=== PATIENT | male | born 1960 | race Caucasian/White ===

== ENCOUNTER → 2023-02-03 10:01 | Outpatient (BNVA) | payer MEDICAID, SELFPAY | PROVIDERS: PCP Internal Medicine; Referring Provider Family Medicine; Visit Provider Psychiatry & Neurology Neurology | DX: R29.90 Unspecified symptoms and signs involving the nervous system (principal) | CPT/HCPCS: 36415; 80061; 81241; 82607; 82746; 83090; 83735; 83921; 84155; 84165; 84439; 84443; 84481; 85210; 85300; 85303; 85306; 86146; 86147; 86334; 86617; 86780 ==

== ENCOUNTER → 2023-02-03 10:01 | Outpatient (BNVA) | payer MEDICAID, SELFPAY | PROVIDERS: PCP Internal Medicine; Referring Provider Family Medicine; Visit Provider Psychiatry & Neurology Neurology | DX: G62.9 Polyneuropathy, unspecified (principal); R00.1 Bradycardia, unspecified; Z86.73 Personal history of transient ischemic attack (TIA), and cerebral infarction without residual deficits; R68.89 Other general symptoms and signs; F17.200 Nicotine dependence, unspecified, uncomplicated; Z96.29 Presence of other otological and audiological implants; G25.0 Essential tremor; E78.5 Hyperlipidemia, unspecified | CPT/HCPCS: 99203 ==

== ENCOUNTER 2023-02-12 13:18 | Outpatient (CLI) | payer MEDICAID, SELFPAY ==
--- NOTE | 2023-02-12 13:15 | USCV_ITS ---
Yuval Hyde Age: 62 Gender: M : 1960 Exam Date: 02/12/2023 13:35 Ordering Phys: Pillo Hood MD Technologist: Jose Juarez [place]am Location: [facility] [place] Indication: neurological complaint Risk Factors: Previous Vascular Surgery: Right Brachial BP: / Left Brachial BP: / Right Left Velocity (cm/s) Spectral Plaque Velocity (cm/s) Spectral Plaque Syst/Diast Broadening Syst/Diast Broadening 109.20/24.30 Prox CCA 139.00/ 30.20 108.10/29.80 Mid CCA 100.30/ 30.90 91.70/ 23.30 Distal CCA 102.50/ 26.50 119.60/30.20 Prox ICA 144.50/ 28.00 77.70/ 29.50 Mid ICA 82.00 / 26.50 82.30/ 32.60 Distal ICA 87.30 / 34.80 144.40 ECA 96.30 0.72 ICA/CCA 0.82 Antegrade Vertebral Antegrade 51.70/ 16.70 cm/s 55.80/ 16.50 cm/s Tri Subclavian Tri 107.2 92.40 0 FINDINGS Comparison: none available. No significant elevation of systolic or diastolic velocities. Waveforms are normal. Mild plaque in the bifurcations. Antegrade vertebral arteries. CONCLUSIONS Bilateral ICA stenosis less than 50%. Mild carotid atherosclerosis. Dr. Denise Vo DO (Electronically Signed) Final Date: 12 February 2023 14:11 S
== END 2023-02-12 13:19 | disposition home or self-care (01) ==
LOC: RAD 13:21
PROVIDERS: PCP Internal Medicine; Visit Provider Psychiatry & Neurology Neurology
DX: R29.90 Unspecified symptoms and signs involving the nervous system (principal); I65.23 Occlusion and stenosis of bilateral carotid arteries
CPT/HCPCS: 36415; 80061; 81241; 82607; 82746; 83090; 83735; 83921; 84155; 84165; 84439; 84443; 84481; 85210; 85300; 85303; 85306; 86146; 86147; 86334; 86617; 86780; 93880

== ENCOUNTER 2023-03-05 10:44 | Oncology outpatient (recurring) (ONCR) | payer MEDICAID, SELFPAY | END 2023-03-13 23:59 | disposition home or self-care (01) | LOC: ONCMED 10:45 | PROVIDERS: PCP Internal Medicine; Visit Provider Internal Medicine Medical Oncology | DX: D68.51 Activated protein C resistance (principal); G62.9 Polyneuropathy, unspecified; D51.9 Vitamin B12 deficiency anemia, unspecified; Z79.899 Other long term (current) drug therapy | CPT/HCPCS: 99205 ==

== ENCOUNTER 2023-04-21 15:07 | Outpatient (CLI) | payer MEDICAID, SELFPAY ==
--- NOTE | 2023-04-21 15:15 | USCV_ITS ---
mILD Icenogle, Yuval Age: 62 Gender: M : 1960 Exam Date: 04/21/2023 15:25 Ordering Phys: Pillo Hood MD Technologist: CT Exam Location: [facility] – [place]_ Indication: bradycardia BP: 130 / 80 HR: 56 Rhythm: Sinus Technical Quality: Adequate MEASUREMENTS (Male / Female) Normal Values 2D ECHO LV Chamber Size 4.3 cm RV Chamber Size 2.9 cm LV Ejection Fraction MOD 2C 67.9 % LV Ejection Fraction 2C AL 67.4 % LA Diameter 3.5 cm LA Width 3.4 cm LA Height 3.7 cm RA Width 3.6 cm RA Height 4.7 cm Aorta at Sinotubular Diameter 2.3 cm IVC Diameter 1.5 cm M-MODE Aortic Annulus Diameter 3.0 cm LA Ao Ratio MM 1.4 MV E Point Septal Separation 0.7 cm DOPPLER AV Peak Velocity 160.0 cm/s LVOT Peak Velocity 118.0 cm/s MV Area PHT 2.5 cm squared Mitral E to A Ratio 1.3 MV E' Velocity 43.5 cm/s Mitral E to MV E' Ratio 6.2 Mitral E to LV E' Lateral Ratio 5.3 Mitral E to LV E' Septal Ratio 7.4 TR Peak Velocity 105.0 cm/s TR Peak Gradient 4.4 mmHg TV Peak E Velocity 77.0 cm/s Right Atrial Pressure 3.0 mmHg Pulmonary Artery Systolic Pressu 7.4 mmHg PV Peak Velocity 104.0 cm/s FINDINGS Left Ventricle Lefft ventricle is normal in size. LV systolic function is normal with EF 55 to 60%. No regional wall motion abnormalities are seen. Right Ventricle Normal in size and function Right Atrium Normal in size Left Atrium Normal in size Mitral Valve Structurally normal mitral valve. Trace mitral regurgitation. Aortic Valve Structurally normal aortic valve. No significant stensosis or regurgitation. Tricuspid Valve Mild tricuspid regurgitation. Insufficient TR jet to calculate RVSP Pulmonic Valve Not well visualized Pericardium Normal Aorta Normal in size IVC Appears to be normal CONCLUSIONS LV systolic function is normal with EF of 55-60% Trace mitral regurgitation Mild tricuspid regurgitation No comparison studies are available. Coy Kumar MD (Electronically Signed) Final Date: 03 May 2023 11:16 S
== END 2023-04-21 15:08 | disposition home or self-care (01) ==
LOC: RAD 15:11
PROVIDERS: PCP Internal Medicine; Visit Provider Psychiatry & Neurology Neurology
DX: R00.1 Bradycardia, unspecified (principal)
CPT/HCPCS: C8929

== ENCOUNTER → 2023-04-28 14:10 | Outpatient (BNVA) | payer MEDICAID, SELFPAY | PROVIDERS: PCP Internal Medicine; Visit Provider Psychiatry & Neurology Neurology | DX: R27.0 Ataxia, unspecified (principal); D68.51 Activated protein C resistance; E53.8 Deficiency of other specified B group vitamins; R68.89 Other general symptoms and signs | CPT/HCPCS: 99212 ==